=== PATIENT | male | born 1990 | race African-American/Black ===

== ENCOUNTER 2018-04-14 16:07 | Emergency (ER) | payer MEDICAID ==
[~2018-04-14] VITALS: Ht 167.6 cm; Wt 66.0 kg
[2018-04-14 16:53] VITALS: BP 101/54
[2018-04-14] MEDS ORDERED: LIDOCAINE HCL 4% CREAM 76GM TUBE TP SCH (17:30)
[2018-04-14] MEDS ORDERED: LIDOCAINE/EPINEPHR/TETRACAINE 3ML TP ONE ×2 (17:45→17:54)
== END 2018-04-14 19:08 | disposition home or self-care (01) ==
LOC: ER 19:01
DX: L02.214 Cutaneous abscess of groin (principal); F17.200 Nicotine dependence, unspecified, uncomplicated
CPT/HCPCS: 10060; 99283; Z7610

== ENCOUNTER 2018-09-11 09:36 | Emergency (ER) | payer SELFPAY ==
[~2018-09-11] VITALS: Ht 170.2 cm; Wt 60.0 kg
[2018-09-11 09:47] VITALS: BP 114/75
[2018-09-11] MEDS ORDERED: AZITHROMYCIN 500 MG TABLET PO ONE (10:30)
[2018-09-11] MEDS ORDERED: CEFTRIAXONE SODIUM 250 MG/VIAL IM ONE (10:30)
== END 2018-09-11 11:21 | disposition home or self-care (01) ==
LOC: ER 09:36
DX: A64 Unspecified sexually transmitted disease (principal); F17.200 Nicotine dependence, unspecified, uncomplicated
CPT/HCPCS: 96372; 99283; J0696